=== PATIENT | female | born 1955 | race Caucasian/White ===

== ENCOUNTER 2019-01-06 08:44 | Day surgery (SDC) | payer MEDICARE, OTHER ==
[~2019-01-06] VITALS: Ht 157.5 cm; Wt 67.6 kg
[~2019-01-06 08:44] MED LIST: ASPI81CH; ASPI81CH PO; CHOL10002 PO; COLE5P; Calcium + Vita1 EACH PO; ESCI20 PO; Estrace Vagin42.5 GM VAG; LOSARTAN POTAS100 MG; LOSARTAN-HCTZ1 EAC1 PO; Omega 3 1,0001 EACH PO; THERA1 EACH PO; TYLENOL PM PO
--- NOTE | 2019-01-06 09:26 | NUR ---
PT ADMITTED TO [facility]. AGREES WITH PLANNED SURGER. MEDS,ALLERGIES AND HX REVIEWED. LUNG SOUNDS CLEAR.
--- NOTE | 2019-01-06 09:37 | NUR ---
NOCHRISTINAN SWAB TO BILATERAL NARES.
--- NOTE | 2019-01-06 10:08 | NUR ---
PT UP TO BATHROOM TO VOID.
--- NOTE | 2019-01-06 15:00 | NUR ---
assumed care of pt, received report from emergency services director Megan, pt a/0 x 4, pleasant/cooperative, bed in lowest position, call light within reach, bed rails up
--- NOTE | 2019-01-06 15:54 | NUR ---
01/06/19 1554 Christiano George LATE ENTRY: STAPLE REMOVED FROM PATIENT'S RIGHT KNEE BY DR. WAN, CLEANED, STERILIZED AND SENT HOME WITH PATIENT
--- NOTE | 2019-01-06 20:06 | NUR ---
summary: post op vs complete and stable, pt tolerated PO liquid, urinated 800 ml clear bright yellow urine. pt up to bathroom with fww and gait belt, tolerated well. pt tolerated PO intake with no n/v. pt states pain controlled per mar. pt with returned and full sensation/gross movement to lower extremities. remainted a/0 x 4, pleasant/cooperative
[2019-01-07 04:39] LABS: BASOPHILS ABSOLUTE AUTO 0.02 K/mm3 (0.00-0.23); BASOPHILS PERCENT AUTO 0 % (0-2); EOSINOPHILS PERCENT AUTO 0 % (0-6); Hematocrit 29.8 % (33.0-51.0); Hemoglobin 10.2 g/dL (11.5-16.0); IMMATURE GRAN ABSOLUTE AUTO 0.04 K/mm3 (0.00-0.10); IMMATURE GRAN PERCENT AUTO 0 % (0-1); LYMPHOCYTES ABSOLUTE AUTO 1.16 K/mm3 (0.84-5.20); LYMPHOCYTES PERCENT AUTO 11 % (21-46); MONOCYTES ABSOLUTE AUTO 1.12 K/mm3 (0.16-1.47); MONOCYTES PERCENT AUTO 10 % (4-13); Mean Corpuscular HGB 35.2 pg (26.0-34.0); Mean Corpuscular HGB Conc 34.2 g/dL (31.5-36.5); Mean Corpuscular Volume 103 fL (80-100); Mean Platelet Volume 9.1 fL (9.1-12.4); NEUTROPHILS ABSOLUTE AUTO 8.64 K/mm3 (1.96-9.15); NEUTROPHILS PERCENT AUTO 79 % (41-73); Platelet Count 278 K/mm3 (150-400); RDW Coefficient Variation 11.6 % (11.7-14.2); RDW Standard Deviation 44.2 fL (35.1-46.3); White Blood Cell Count 10.98 K/mm3 (4.00-11.30)
[2019-01-07 05:03] LABS: Anion Gap 8 mmol/L (6-16); Blood Urea Nitrogen 14 mg/dL (8-24); Bun/Creatinine Ratio 20.9 (12.0-20.0); CO2, Blood 26 mmol/L (21-32); Calcium, Blood 8.1 mg/dL (8.5-10.1); Chloride, Blood 99 mmol/L (98-108); Creatinine, Blood 0.67 mg/dL (0.40-1.00); Glomerular Filtration Rate >60 (60-); Glucose, Blood 117 mg/dL (70-99); Magnesium, Blood 2.1 mg/dL (1.6-2.4); Potassium, Blood 3.5 mmol/L (3.5-5.5); Sodium, Blood 133 mmol/L (136-145)
--- NOTE | 2019-01-07 06:48 | NUR ---
LYING IN SEMI FOWLERS WITH EYES OPEN. WAS TREATED FOR PAIN X3 THIS SHIFT, TOLERATED WELL. AMBULATES WELL WITH FWW AND STANDBY ASSIST. DENIES FURTHER NEEDS OR WANTS AT THIS TIME. SAFETY MEASURES IN PLACE. WILL GIVE HAND OFF TO ONCOMING SHIFT USING SBAR.
--- NOTE | 2019-01-07 07:20 | NUR ---
DR WAN HERE, IMPRESS ASSOCIATE ROUNDED WITH
--- NOTE | 2019-01-07 07:26 | NUR ---
DISCUSSED EMAR WITH DR WAN REGARDING ASA AND LOVENOX, REPORTS TO D/C ASA. SEE ORDERS.
[2019-01-07] MEDS ORDERED: ENOX40I SC (08:21)
[2019-01-07] MEDS ORDERED: PROM25 PO (08:22)
[2019-01-07] MEDS ORDERED: OXYC5 PO (08:22)
--- NOTE | 2019-01-07 15:02 | NUR ---
DISCHARGE: PT EATING AND DRINKING WELL. PT VOIDING AND PASSING GAS. PT/FAMILY REPORTS UNDERSTANDING OF DISCHARGE INSTRUCTIONS. PT SENT WITH BELONGINGS INCLUDING ICE MACHINE AND DRESSING SUPPLIES. PT REPORTS HAVING APPR EQUIP AT HOME. PT BEEN CLEARED BY THERAPY TO GO HOME. IV OUT WNL.
== END 2019-01-07 15:02 | disposition home or self-care (01) ==
LOC: ORSCMMR 08:44 → ORD 10:30 → SURS 14:10 → ORSCMMR 01-07 15:02 → SURS 01-07 15:02
PROVIDERS: Orthopaedic Surgery
PROC: 0SRC0J9 Replacement of Right Knee Joint with Synthetic Substitute, Cemented, Open Approach (ICD-10-PCS; principal; 2019-01-06 10:30)
PROC: 8E0YXBZ Computer Assisted Procedure of Lower Extremity (ICD-10-PCS; principal; 2019-01-06 10:30)
PROC: 0QPG04Z Removal of Internal Fixation Device from Right Tibia, Open Approach (ICD-10-PCS; principal; 2019-01-06 10:30)
DX: M17.11 Unilateral primary osteoarthritis, right knee (principal); I10 Essential (primary) hypertension; Z79.899 Other long term (current) drug therapy
CPT/HCPCS: 36415; 73560-RT; 80048; 83735; 85025; 88300; 97110; 97116; 97162; C1713; C1776; J0171; J0690; J0735; J1100; J1170; J1650; J1885; J2250; J2405; J2765; J2795; J3010; J3370; J7120

== ENCOUNTER → 2019-08-18 | Outpatient (CLI) | payer MEDICARE, OTHER ==
[~2019-08-18] MED LIST changes: +ENOX40I SC; +OXYC5 PO; +PROM25 PO
[2019-08-23 14:07] LABS: HPV 16 Negative (Negative); HPV 18 Negative (Negative); HPV OTHER HR TYPES Negative (Negative)
== END | disposition home or self-care (01) ==
LOC: OLS 13:05 → LAB SHORT 13:05
PROVIDERS: Nurse Practitioner Women's Health
DX: Z12.72 Encounter for screening for malignant neoplasm of vagina (principal); Z91.89 Other specified personal risk factors, not elsewhere classified
CPT/HCPCS: 87624; G0123

== ENCOUNTER 2021-05-29 09:08 | Emergency (ER) | payer MEDICARE, OTHER ==
[~2021-05-29] VITALS: Ht 157.5 cm; Wt 64.4 kg
[~2021-05-29 09:08] MED LIST changes: +ATEN25 PO; +CLOP75 PO; +REPATHA SY140 MG/1 M IM
== END 2021-05-29 12:55 | disposition home or self-care (01) ==
LOC: ER 09:08
DX: R04.0 Epistaxis (principal); I10 Essential (primary) hypertension; Z79.02 Long term (current) use of antithrombotics/antiplatelets; Z79.82 Long term (current) use of aspirin; Z79.899 Other long term (current) drug therapy
CPT/HCPCS: 99283; A9270

== ENCOUNTER 2021-12-05 06:49 | Day surgery (SDC) | payer MEDICARE, OTHER ==
[~2021-12-05] VITALS: Ht 157.5 cm; Wt 65.9 kg
--- NOTE | 2021-12-05 09:47 | NUR ---
12/05/21 0947 Soraya Knott 0.15CC EPI ADDED TO 30CC 1% LIDO=1% LIDO WITH EPI 1:200,000.
== END 2021-12-05 11:22 | disposition home or self-care (01) ==
LOC: ORSCSDS 06:49
PROVIDERS: Otolaryngology
PROC: 8E09XBZ Computer Assisted Procedure of Head and Neck Region (ICD-10-PCS; principal; 2021-12-05 08:15)
PROC: 09SM4ZZ Reposition Nasal Septum, Percutaneous Endoscopic Approach (ICD-10-PCS; principal; 2021-12-05 08:15)
PROC: 09DQ4ZZ Extraction of Right Maxillary Sinus, Percutaneous Endoscopic Approach (ICD-10-PCS; principal; 2021-12-05 08:15)
DX: J32.0 Chronic maxillary sinusitis (principal); J34.2 Deviated nasal septum; I10 Essential (primary) hypertension; Z86.73 Personal history of transient ischemic attack (TIA), and cerebral infarction without residual deficits; F41.8 Other specified anxiety disorders; I69.398 Other sequelae of cerebral infarction; Z79.899 Other long term (current) drug therapy; Z79.82 Long term (current) use of aspirin
CPT/HCPCS: 88305; 88311; 88312; A9270; J0171; J1100; J2001; J2250; J2370; J2405; J2704; J3010; J7120

== ENCOUNTER 2022-11-18 12:59 | Day surgery (SDC) | payer MEDICARE, OTHER ==
[~2022-11-18] VITALS: Ht 157.5 cm; Wt 63.6 kg
== END 2022-11-18 15:19 | disposition home or self-care (01) ==
LOC: ORSCSDS 12:59
PROVIDERS: Internal Medicine Gastroenterology
PROC: 0DBH8ZX Excision of Cecum, Via Natural or Artificial Opening Endoscopic, Diagnostic (ICD-10-PCS; principal; 2022-11-18 14:30)
PROC: 0DBM8ZX Excision of Descending Colon, Via Natural or Artificial Opening Endoscopic, Diagnostic (ICD-10-PCS; principal; 2022-11-18 14:30)
DX: Z12.11 Encounter for screening for malignant neoplasm of colon (principal); Z86.010 Personal history of colon polyps; Z80.0 Family history of malignant neoplasm of digestive organs; D12.0 Benign neoplasm of cecum; D12.4 Benign neoplasm of descending colon; K57.30 Diverticulosis of large intestine without perforation or abscess without bleeding; Z86.73 Personal history of transient ischemic attack (TIA), and cerebral infarction without residual deficits; E78.5 Hyperlipidemia, unspecified; Z79.82 Long term (current) use of aspirin; I10 Essential (primary) hypertension; I48.0 Paroxysmal atrial fibrillation; F41.8 Other specified anxiety disorders; Z79.899 Other long term (current) drug therapy
CPT/HCPCS: 88305; J2704; J7120

== ENCOUNTER 2023-07-02 08:21 | Day surgery (SDC) | payer MEDICARE, OTHER ==
[2023-07-02] VITALS (11 sets, daily range): BP systolic 87–158; BP diastolic 51–88
[~2023-07-02] VITALS: Ht 152.4 cm; Wt 65.6 kg
--- NOTE | 2023-07-02 10:55 | NUR ---
History, Chart, Medications and Allergies reviewed before start of procedure. Surgical site prepped with 2% Chlorhexidine cloth wipe. Ambulatory in Day Surgery. Patient confirms NPO status and agrees with scheduled surgery. Pre-Op teaching done. Pt verbalizes understanding. GLASSES/WALKER TRANSFERED TO PACU.
--- NOTE | 2023-07-02 11:34 | NUR ---
07/02/23 Jann4 Karen Vivar PRIOR TO ARRIVING IN THE OR THE PATIENT RECEIVED VANCO 1GM IV IN THE PREOP SETTING.
--- NOTE | 2023-07-02 13:58 | NUR ---
PATIENT CAME BACK FROM PACU TODAY AT 1345. POD 0 LEFT TOTAL KNEE PATIENT IS A&OX4. VS ARE WNL AND IS ON RA. PATIENT HAD A SPINAL DURING PROCEDURE AND IS ABLE TO WIGGLE TOES WHEN ASKED BUT REPORTS "ITS STILL PRETTY NUMB". PATIENT DENIES PAIN AT THIS TIME. HER LEFT KNEE HAS AN MARISOL WRAP THAT IS C/D/I. PEDAL PULSES ARE STRONG AND WARM TO TOUCH. POLAR PACK IN PLACE. SHE IS TOLERATING SMALL AMOUNTS OF PO INTAKE. SHE IS LAYING IN BED WITH CALL LIGHT IN REACH.
--- NOTE | 2023-07-02 16:07 | NUR ---
SHIFT SUMMARY: POD 0 LEFT TOTAL KNEE NO SIGNIFICANT CHANGES SINCE ARRIVAL TO UNIT. PATIENT IS A&OX4. VS ARE WNL AND IS ON RA. PATIENT DENIES PAIN BUT HAS ACCEPTED THE SCHEDULED IV TORADOL AND PO TYLENOL. HER LEFT KNEE HAS MARISOL WRAP THAT IS C/D/I WITH POLAR PACK IN PLACE. PATIENT DENIES NUMBNESS OR TINGLING THROUGHOUT ALL EXTREMITIES. SHE IS TOLERATING PO INTAKE. SHE IS LAYING IN BED WITH CALL LIGHT IN REACH.
--- NOTE | 2023-07-03 04:30 | NUR ---
SHIFT SUMMARY POD 1 L TKA. NO ACUTE CHANGES OVERNIGHT. VS WNL FOR PT. MAU WITH MARISOL WRAP, DRESSING C/D/I. PT REPORTS PAIN WITHIN ACCEPTABLE LIMITATIONS, MEDICATED PER EMAR. TOLERATING ORALS. PT AMBULATE IN HALLS WITH FWW, STANDBY ASSIST. ANTICIPATED D/C LATER TODAY. CALL LIGHT WITHIN REACH, BED IN LOWEST POSITION, WILL REPORT TO DAY RN.
[2023-07-03 05:12] VITALS: BP 124/54
[2023-07-03 06:07] LABS: BASOPHILS ABSOLUTE AUTO 0.01 K/mm3 (0.00-0.23); BASOPHILS PERCENT AUTO 0 % (0-2); EOSINOPHILS ABSOLUTE AUTO 0.04 K/mm3 (0.00-0.68); EOSINOPHILS PERCENT AUTO 0 % (0-6); Hematocrit 29.7 % (33.0-51.0); Hemoglobin 10.3 g/dL (11.5-16.0); IMMATURE GRAN ABSOLUTE AUTO 0.04 K/mm3 (0.00-0.10); IMMATURE GRAN PERCENT AUTO 0 % (0-1); LYMPHOCYTES ABSOLUTE AUTO 1.47 K/mm3 (0.84-5.20); LYMPHOCYTES PERCENT AUTO 12 % (21-46); MONOCYTES ABSOLUTE AUTO 0.95 K/mm3 (0.16-1.47); MONOCYTES PERCENT AUTO 8 % (4-13); Mean Corpuscular HGB 34.3 pg (26.0-34.0); Mean Corpuscular HGB Conc 34.7 g/dL (31.5-36.5); Mean Corpuscular Volume 99 fL (80-100); Mean Platelet Volume 9.7 fL (9.1-12.4); NEUTROPHILS PERCENT AUTO 79 % (41-73); Platelet Count 287 K/mm3 (150-400); RDW Coefficient Variation 11.7 % (11.7-14.2); RDW Standard Deviation 42.1 fL (35.1-46.3); White Blood Cell Count 11.81 K/mm3 (4.00-11.30)
[2023-07-03 06:29] LABS: Bun/Creatinine Ratio 25.8 (12.0-20.0); Calcium, Blood 8.8 mg/dL (8.5-10.1); Creatinine, Blood 0.81 mg/dL (0.40-1.00); Magnesium, Blood 1.9 mg/dL (1.6-2.4); Potassium, Blood 3.6 mmol/L (3.5-5.5)
[2023-07-03 07:08] VITALS: BP 124/54
[2023-07-03] MEDS ORDERED: PROM25 PO (09:25)
[2023-07-03] MEDS ORDERED: XARELTO20 MG PO (09:26)
[2023-07-03] MEDS ORDERED: OXAYDO5 M1 PO (09:26)
--- NOTE | 2023-07-03 09:54 | NUR ---
DISCHARGE PT EDUCATED ON AND RECEIVED PRINTED DISCHARGE INSTRUCTIONS AND VERBALIZED AN UNDERSTANDING. X2 AQUACEL DRESSINGS GIVEN TO PT. IV DC'D. PAIN CONTROLLED, VOIDING, AND CLEARED THERAPY. PERSONAL BELONGINGS PACKED UP AND PT WAITING FOR RIDE HOME. PT REPORTS RX FILLED AT HOME.
== END 2023-07-03 09:59 | disposition home or self-care (01) ==
LOC: ORSCMMR 08:21 → ORD 11:00 → ORSCMMR 11:00 → ORD 11:30 → SURS 13:30 → ORSCMMR 07-03 09:59
PROVIDERS: Orthopaedic Surgery
PROC: 0SRD0J9 Replacement of Left Knee Joint with Synthetic Substitute, Cemented, Open Approach (ICD-10-PCS; principal; 2023-07-02 11:00)
DX: M17.12 Unilateral primary osteoarthritis, left knee (principal); Z96.651 Presence of right artificial knee joint; I10 Essential (primary) hypertension; E78.00 Pure hypercholesterolemia, unspecified; Z86.73 Personal history of transient ischemic attack (TIA), and cerebral infarction without residual deficits; Z79.899 Other long term (current) drug therapy; Z79.82 Long term (current) use of aspirin
CPT/HCPCS: 36415; 73560-LT; 80048; 83735; 85025; 97110; 97116; 97162; A9270; C1713; C1776; J0171; J0690; J0735; J1100; J1885; J2250; J2405; J2704; J2795; J3010; J3370; J7120

== ENCOUNTER 2023-11-24 09:12 | Day surgery (SDC) | payer MEDICARE, OTHER ==
[~2023-11-24] VITALS: Ht 157.5 cm; Wt 65.0 kg
[~2023-11-24 09:12] MED LIST changes: -ASPI81CH PO; +Aspir 8181 MG PO; -CHOL10002 PO; +Lactated Ringer's 1,000 ML IV ONE; +ONE DAILY MUL400 MCG PO; +OXAYDO5 M1 PO; +VITAMIN D350 MC3 PO; +XARELTO20 MG PO; +propofoL 50 ML IV ONE
[2023-11-24] MEDS ORDERED: FISH OIL 1,0001 EA10 (09:36)
[2023-11-24] MEDS ORDERED: CALCIUM-MAGNES1 EAC9 (09:36)
[2023-11-24] MEDS ORDERED: VITAMIN B COMP1 EAC1 (09:37)
[2023-11-24] MEDS ORDERED: ACET120S (09:38)
[2023-11-24] MEDS ORDERED: Premarin0.3 MG (09:38)
[2023-11-24] MEDS ORDERED: Lactated Ringer's 1,000 ML IV ONE (10:11)
[2023-11-24 11:51] VITALS: BP 120/71
== END 2023-11-24 11:54 | disposition home or self-care (01) ==
LOC: ORSCSDS 09:12
PROVIDERS: Internal Medicine Gastroenterology
PROC: 0DBK8ZX Excision of Ascending Colon, Via Natural or Artificial Opening Endoscopic, Diagnostic (ICD-10-PCS; principal; 2023-11-24 10:30)
PROC: 0DBH8ZX Excision of Cecum, Via Natural or Artificial Opening Endoscopic, Diagnostic (ICD-10-PCS; principal; 2023-11-24 10:30)
DX: Z12.11 Encounter for screening for malignant neoplasm of colon (principal); D12.0 Benign neoplasm of cecum; D12.2 Benign neoplasm of ascending colon; Z86.010 Personal history of colon polyps; Z80.0 Family history of malignant neoplasm of digestive organs; Z86.73 Personal history of transient ischemic attack (TIA), and cerebral infarction without residual deficits; Z79.82 Long term (current) use of aspirin; Z79.899 Other long term (current) drug therapy; K57.30 Diverticulosis of large intestine without perforation or abscess without bleeding
CPT/HCPCS: 88305; J2704; J7120

== ENCOUNTER → 2024-03-23 | Outpatient (CLI) | payer MEDICARE, OTHER ==
[~2024-03-23] MED LIST changes: +ACET120S; +CALCIUM-MAGNES1 EAC9; +FISH OIL 1,0001 EA10; -Lactated Ringer's 1,000 ML IV ONE; +Premarin0.3 MG; +VITAMIN B COMP1 EAC1; -propofoL 50 ML IV ONE
[2024-03-23 16:55] LABS: Influenza A, PCR NEGATIVE (NEGATIVE); Influenza B, PCR NEGATIVE (NEGATIVE); Resp Syncytial Virus, PCR NEGATIVE (NEGATIVE); SARS-Cov-2 (COVID-19) PCR, MMC NEGATIVE (NEGATIVE)
== END ==
LOC: LAB 09:00 → LAB SHORT 09:00
PROVIDERS: Registered Nurse
DX: N39.0 Urinary tract infection, site not specified (principal); J02.9 Acute pharyngitis, unspecified; R05.9 Cough, unspecified
CPT/HCPCS: 0241U; 87077; 87086; 87186

== ENCOUNTER → 2024-11-09 | Outpatient (CLI) | payer MEDICARE, OTHER | LOC: LAB 16:21 → LAB SHORT 16:21 | DX: R82.90 Unspecified abnormal findings in urine (principal) | CPT/HCPCS: 87086 ==

== ENCOUNTER → 2025-08-03 | Outpatient (CLI) | payer MEDICARE, OTHER | LOC: LAB SHORT 09:00 → LAB 09:00 | DX: N30.91 Cystitis, unspecified with hematuria (principal) | CPT/HCPCS: 87077; 87086; 87186 ==